=== PATIENT | female | born 1960 | race Caucasian/White ===

== ENCOUNTER → 2018-04-03 09:28 | Outpatient (CLI) | payer MEDICARE, MEDICAID, SELFPAY ==
[2018-04-03 12:26] LABS: Lithium 0.74 mmol/L (0.60-1.20)
[2018-04-03 13:29] LABS: ALT 23 U/L (12-78); AST 15 U/L (15-37); Albumin 3.8 g/dL (3.4-5.0); Alkaline Phosphatase 88 U/L (46-116); BUN 14 mg/dL (7-18); Bilirubin, Total 0.2 mg/dL (0.2-1.0); CREATININE 1.11 mg/dL (0.55-1.02); Calcium 9.2 mg/dL (8.5-10.1); Chloride 107 mmol/L (98-107); Estimated GFR 50.66 (mL/min/1.73m2); Glucose 127 mg/dL (70-100); Potassium 4.2 mmol/L (3.5-5.1); Sodium 140 mmol/L (136-145); TSH (W/Ref FT4) 1.74 uIU/mL (0.358-3.74); Total Protein 7.1 g/dL (6.4-8.2); Vitamin B12 845 pg/mL (193-986)
== END ==
PROVIDERS: Visit Provider Nurse Practitioner Psychiatric/Mental Health
DX: F31.31 Bipolar disorder, current episode depressed, mild (principal); Z51.81 Encounter for therapeutic drug level monitoring; Z79.899 Other long term (current) drug therapy
CPT/HCPCS: 36415; 80053; 80178; 82607; 84443

== ENCOUNTER 2018-04-13 10:48 | Outpatient (CLI) | payer MEDICARE, MEDICAID, SELFPAY | END 2018-04-13 11:08 | PROVIDERS: Visit Provider Nurse Practitioner Psychiatric/Mental Health | DX: F31.31 Bipolar disorder, current episode depressed, mild (principal); Z13.6 Encounter for screening for cardiovascular disorders | CPT/HCPCS: 93005; 93010 ==

== ENCOUNTER 2018-05-17 00:18 | Outpatient (CLI) | payer MEDICARE, MEDICAID, SELFPAY ==
--- NOTE | 2018-05-17 09:30 | DI.MAMMO_ITS ---
SYMPTOM/DIAGNOSIS: F/U ABNL MAMMO, 6 MO. F/U, R92.8 MAMMOGRAMS: Mammograms were interpreted according to the usual protocol including computer analysis with CAD system, tomosynthesis and C view imaging. Comparison is made with prior examinations. Breast density, B. No suspicious masses or microcalcifications are seen. The area of breast asymmetry in the medial left breast appears stable. There has been no significant change compared to the prior examinations. The skin and axilla are unremarkable. IMPRESSION: No evidence for malignancy. Yearly mammography should resume in 6 months with screening mammograms. Category 2. MQSA ASSESSMENT OF FINDINGS: Negative with benign findings. Category 2. Patient will receive a letter notifying them of these results. BI-RADS category B. There are scattered areas of fibroglandular density.
== END 2018-05-17 00:38 ==
DX: R92.8 Other abnormal and inconclusive findings on diagnostic imaging of breast (principal)
CPT/HCPCS: 77062; 77066; G0279

== ENCOUNTER 2018-09-06 09:58 | Outpatient (CLI) | payer MEDICARE, MEDICAID, SELFPAY ==
[2018-09-06 11:55] LABS: ALT 25 U/L (12-78); AST 17 U/L (15-37); Albumin 3.9 g/dL (3.4-5.0); Alkaline Phosphatase 87 U/L (46-116); Anion Gap 9.6 mmol/L (3-11); BUN 16 mg/dL (7-18); Bilirubin, Total 0.3 mg/dL (0.2-1.0); CO2 27.4 mmol/L (21.0-32.0); CREATININE 0.89 mg/dL (0.55-1.02); Calcium 9.8 mg/dL (8.5-10.1); Chloride 104 mmol/L (98-107); Glucose 100 mg/dL (70-100); Potassium 4.2 mmol/L (3.5-5.1); Sodium 141 mmol/L (136-145); TSH 0.72 uIU/mL (0.358-3.74); Total Protein 7.5 g/dL (6.4-8.2)
[2018-09-06 19:44] LABS: Lithium 0.73 mmol/L (0.60-1.20)
== END 2018-09-06 10:18 ==
PROVIDERS: Visit Provider Nurse Practitioner Psychiatric/Mental Health
DX: F31.31 Bipolar disorder, current episode depressed, mild (principal); Z51.81 Encounter for therapeutic drug level monitoring; Z79.899 Other long term (current) drug therapy
CPT/HCPCS: 36415; 80053; 80178; 84443

== ENCOUNTER 2018-10-20 01:55 | Outpatient (CLI) | payer MEDICARE, MEDICAID, SELFPAY ==
--- NOTE | 2018-10-20 12:43 | DI.RAD_ITS ---
SYMPTOMS/DIAGNOSIS: TOP OF RT FOOT PAIN BOTH WEIGHT BEARING AND NOT, ? FX, M79.685 RIGHT FOOT: There are no prior comparison exams. A fixation plate is seen across the dorsal aspect of the first MTP joint. The fixation plate is fractured over the first metatarsal level. No bony fracture is identified. IMPRESSION: Fracture of the fixation plate along the dorsum of the first MTP joint. No evidence of a bony fracture.
== END 2018-10-20 02:15 ==
DX: M79.671 Pain in right foot (principal); T84.213A Breakdown (mechanical) of internal fixation device of bones of foot and toes, initial encounter
CPT/HCPCS: 73630

== ENCOUNTER → 2018-10-25 08:01 | Outpatient (BNVA) | payer MEDICARE, MEDICAID, SELFPAY | PROVIDERS: Referring Provider Nurse Practitioner Psychiatric/Mental Health; Visit Provider Psychiatry & Neurology Neurology | DX: R09.89 Other specified symptoms and signs involving the circulatory and respiratory systems (principal) | CPT/HCPCS: 99205; 99215 ==

== ENCOUNTER → 2018-11-09 09:57 | Outpatient (BNVA) | payer MEDICARE, MEDICAID, SELFPAY | PROVIDERS: Visit Provider Orthopaedic Surgery | DX: M79.671 Pain in right foot (principal); Z98.890 Other specified postprocedural states; T84.293A Other mechanical complication of internal fixation device of bones of foot and toes, initial encounter | CPT/HCPCS: 99202; 99213 ==

== ENCOUNTER 2018-12-05 01:39 | Outpatient (CLI) | payer MEDICARE, MEDICAID, SELFPAY ==
[2018-12-05 09:47] LABS: Abs Immature Grans 0.02 k/cumm (0.0-0.09); Absolute Basophil Count 0.03 k/cumm (0.0-0.2); Absolute Eosinophil Count 0.23 k/cumm (0.0-0.7); Absolute Lymphocyte Count 3.02 k/cumm (1.2-3.4); Absolute Monocyte Count 0.54 k/cumm (0.11-0.7); Absolute Neutrophil Count 4.56 k/cumm (1.2-6.7); Basophils % 0.4; Eosinophils % 2.7; HCT 40.7 % (36.0-46.0); HGB 13.3 g/dL (12.0-15.5); Immature Grans % 0.2; Mean Corp. HGB Concentration 32.7 g/dL (32.0-36.0); Mean Corpuscular Hemoglobin 31.1 pg (27.0-33.0); Mean Corpuscular Volume 95.1 fL (80-95); Mean Platelet Volume 9.2 fL (8.0-11.0); Monocytes % 6.4; Neutrophils % 54.3; Platelet Count 305 x1000/uL (130-400); RBC 4.28 m/cumm (4.00-5.20); RBC Distribution Width 12.9 % (11.7-14.6)
[2018-12-05 10:17] LABS: Lithium 0.78 mmol/L (0.60-1.20)
[2018-12-05 10:45] LABS: ALT 36 U/L (12-78); AST 20 U/L (15-37); Albumin 3.9 g/dL (3.4-5.0); Alkaline Phosphatase 100 U/L (46-116); Anion Gap 9.1 mmol/L (3-11); BUN 13 mg/dL (7-18); Bilirubin, Total 0.2 mg/dL (0.2-1.0); CO2 28.9 mmol/L (21.0-32.0); CREATININE 1.04 mg/dL (0.55-1.02); Calcium 10.5 mg/dL (8.5-10.1); Chloride 102 mmol/L (98-107); Estimated GFR 54.43 (mL/min/1.73m2); Glucose 108 mg/dL (70-100); Potassium 4.2 mmol/L (3.5-5.1); Sodium 140 mmol/L (136-145); TSH (W/Ref FT4) 1.35 uIU/mL (0.358-3.74); Total Protein 7.3 g/dL (6.4-8.2); Vitamin B12 679 pg/mL (193-986)
== END 2018-12-05 01:59 ==
PROVIDERS: Visit Provider Nurse Practitioner Psychiatric/Mental Health
DX: F31.31 Bipolar disorder, current episode depressed, mild (principal); Z51.81 Encounter for therapeutic drug level monitoring; Z79.899 Other long term (current) drug therapy
CPT/HCPCS: 36415; 80053; 80178; 82607; 84443; 85025

== ENCOUNTER 2018-12-05 07:04 | Outpatient (CLI) | payer MEDICARE, MEDICAID, SELFPAY ==
--- NOTE | 2018-12-05 10:30 | DI.MAMMO_ITS ---
SYMPTOMS/DIAGNOSIS: 6-MO F/U RESUME ANNUAL SCREENING, Z12.31 MAMMOGRAMS: Mammograms were interpreted according to the usual protocol including computer analysis with CAD system, tomosynthesis and C view imaging. Comparison is with the prior examinations. There are scattered nodular densities in both breasts, which appear stable. There is an area of breast asymmetry in the upper right breast seen on the mediolateral oblique view. This may represent overlying fibroglandular tissue, but a spot compression view is requested. Ultrasound may be indicated at that time. IMPRESSION: Additional views of the right breast as described above. Category 0. Breast density B. MQSA ASSESSMENT OF FINDINGS: Incomplete: Needs additional imaging evaluation. Category 0. Patient will receive a letter notifying them of these results. BI-RADS category B. There are scattered areas of fibroglandular density.
== END 2018-12-05 07:24 ==
DX: Z12.31 Encounter for screening mammogram for malignant neoplasm of breast (principal); R92.8 Other abnormal and inconclusive findings on diagnostic imaging of breast
CPT/HCPCS: 77063; 77067

== ENCOUNTER 2018-12-13 00:42 | Outpatient (CLI) | payer MEDICARE, MEDICAID, SELFPAY ==
--- NOTE | 2018-12-13 14:53 | DI.COMBO_ITS ---
SYMPTOMS/DIAGNOSIS: F/U ABNORMAL MAMMO, RIGHT BREAST ASYMMETRY ADDITIONAL VIEWS OF THE RIGHT BREAST AND RIGHT BREAST ULTRASOUND: Additional images are interpreted according to the usual protocol including tomosynthesis and 2D imaging. Additional views of the right breast fail to show a persistent discrete mass. A right breast ultrasound was performed. The upper outer and upper inner quadrants were evaluated sonographically. No cystic or solid masses are present sonographically. IMPRESSION: No evidence for malignancy. A six-month follow-up right mammogram is requested for reevaluation. Category 3, breast density B. The findings were discussed with the patient on the date of the examination. MQSA ASSESSMENT OF FINDINGS: Probably benign. Six month follow-up recommended. Category 3. Patient will receive a letter notifying them of these results. BI-RADS category B. There are scattered areas of fibroglandular density.
== END 2018-12-13 01:02 ==
DX: Z12.31 Encounter for screening mammogram for malignant neoplasm of breast (principal); R92.8 Other abnormal and inconclusive findings on diagnostic imaging of breast; N64.59 Other signs and symptoms in breast
CPT/HCPCS: 76642; 77063; 77067

== ENCOUNTER 2018-12-27 02:30 | Outpatient (CLI) | payer MEDICARE, MEDICAID, SELFPAY ==
[2018-12-27 11:28] LABS: CREATININE 1.06 mg/dL (0.55-1.02); Estimated GFR 53.24 (mL/min/1.73m2); Glucose 94 mg/dL (70-100)
[2018-12-27 12:28] LABS: Lithium 1.16 mmol/L (0.60-1.20)
== END 2018-12-27 02:50 ==
PROVIDERS: Visit Provider Nurse Practitioner Family
DX: F31.31 Bipolar disorder, current episode depressed, mild (principal); Z51.81 Encounter for therapeutic drug level monitoring; Z79.899 Other long term (current) drug therapy
CPT/HCPCS: 36415; 82947; 80178; 82565

== ENCOUNTER 2019-02-13 01:56 | Outpatient (CLI) | payer MEDICARE, MEDICAID, SELFPAY ==
[2019-02-13 12:09] LABS: ALT 29 U/L (12-78); AST 15 U/L (15-37); Albumin 3.9 g/dL (3.4-5.0); Alkaline Phosphatase 102 U/L (46-116); BUN 14 mg/dL (7-18); Bilirubin, Total 0.3 mg/dL (0.2-1.0); CREATININE 0.96 mg/dL (0.55-1.02); Calcium 9.8 mg/dL (8.5-10.1); Chloride 105 mmol/L (98-107); Estimated GFR 59.69 (mL/min/1.73m2); Glucose 107 mg/dL (70-100); Potassium 4.1 mmol/L (3.5-5.1); Sodium 142 mmol/L (136-145); TSH (W/Ref FT4) 0.87 uIU/mL (0.358-3.74); Total Protein 7.2 g/dL (6.4-8.2); Vitamin B12 546 pg/mL (193-986)
== END 2019-02-13 02:16 ==
DX: E03.9 Hypothyroidism, unspecified (principal); F31.9 Bipolar disorder, unspecified; G25.2 Other specified forms of tremor; M41.20 Other idiopathic scoliosis, site unspecified; Z87.898 Personal history of other specified conditions; G25.81 Restless legs syndrome; M54.30 Sciatica, unspecified side
CPT/HCPCS: 36415; 80053; 82607; 84443

== ENCOUNTER → 2019-02-19 13:11 | Outpatient (BNVA) | payer MEDICARE, MEDICAID, SELFPAY | PROVIDERS: Visit Provider Surgery | DX: L98.8 Other specified disorders of the skin and subcutaneous tissue (principal) | CPT/HCPCS: 11400; 99201 ==

== ENCOUNTER 2019-02-21 01:44 | Outpatient (CLI) | payer MEDICARE, MEDICAID, SELFPAY | END 2019-02-21 02:04 | PROVIDERS: Visit Provider Nurse Practitioner Family | DX: F31.31 Bipolar disorder, current episode depressed, mild (principal); Z79.899 Other long term (current) drug therapy; Z51.81 Encounter for therapeutic drug level monitoring | CPT/HCPCS: 36415; 80178 ==

== ENCOUNTER → 2019-03-09 08:36 | Outpatient (BNVA) | payer MEDICARE, MEDICAID, SELFPAY | PROVIDERS: Visit Provider Physical Therapy Assistant | DX: Z48.02 Encounter for removal of sutures (principal); Z48.817 Encounter for surgical aftercare following surgery on the skin and subcutaneous tissue ==

== ENCOUNTER 2019-06-15 01:47 | Outpatient (CLI) | payer MEDICARE, MEDICAID, SELFPAY ==
[2019-06-15 12:05] LABS: ALT 26 U/L (14-59); AST 15 U/L (15-37); Albumin 3.9 g/dL (3.4-5.0); Alkaline Phosphatase 94 U/L (46-116); Anion Gap 7.5 mmol/L (3-11); BUN 15 mg/dL (7-18); Bilirubin, Total 0.3 mg/dL (0.2-1.0); CO2 29.5 mmol/L (21.0-32.0); CREATININE 1.13 mg/dL (0.55-1.02); Chloride 105 mmol/L (98-107); Estimated GFR 49.28 (mL/min/1.73m2); Glucose 121 mg/dL (70-100); Potassium 3.9 mmol/L (3.5-5.1); Sodium 142 mmol/L (136-145); TSH 0.81 uIU/mL (0.36-3.74); Total Protein 7.2 g/dL (6.4-8.2)
[2019-06-15 12:06] LABS: Lithium 0.85 mmol/L (0.60-1.20)
== END 2019-06-15 02:07 ==
PROVIDERS: Visit Provider Nurse Practitioner Family
DX: F31.31 Bipolar disorder, current episode depressed, mild (principal); Z79.899 Other long term (current) drug therapy; Z51.81 Encounter for therapeutic drug level monitoring; Z12.31 Encounter for screening mammogram for malignant neoplasm of breast; R92.8 Other abnormal and inconclusive findings on diagnostic imaging of breast; N60.81 Other benign mammary dysplasias of right breast
CPT/HCPCS: 36415; 77061; 77065; 80053; 80178; 84443; G0279

== ENCOUNTER 2019-06-15 03:11 | Outpatient (CLI) | payer MEDICARE, MEDICAID, SELFPAY ==
--- NOTE | 2019-06-15 13:57 | DI.MAMMO_ITS ---
EXAM: MG MAMMO DIAGNOSTIC UNI CLINICAL HISTORY: 6-MO F/U ABNORMAL MAMMO, ABNORMALITY OF RT BREAST TECHNIQUE: Bilateral full field digital CC and MLO mammographic images were obtained with 3D tomosyn thesis and utilizing computer aided detection (CAD). COMPARISON: SCREENING [facility] MAMMO W/CAD DIGI from 05/20/2010 SCREENING [facility] MAMMO W/CAD DIGI from 05/21/2011 SCREENING [facility] MAMMO W/CAD DIGI from 05/22/2012 DIAGNOSTIC LEFT MAMMO DIGITAL from 05/26/2012 MG mammo diagnostic BI from 05/17/2018 MG mammo screening from 12/05/2018 FINDINGS: Breast Density - Category B - Scattered areas of fibroglandular density Six-month follow-up for questioned asymmetry in the superior right breast. There is a stable area of nodularity in the superior right breast when compared with previous exams. No suspicious masses or suspicious microcalcifications are seen. IMPRESSION: BI-RADS Cat 2 - Benign Findings. Yearly screening mammography is recommended. Breast Density - Category B - Scattered areas of fibroglandular density
== END 2019-06-15 03:31 ==
DX: Z12.31 Encounter for screening mammogram for malignant neoplasm of breast (principal); R92.8 Other abnormal and inconclusive findings on diagnostic imaging of breast; N60.81 Other benign mammary dysplasias of right breast
CPT/HCPCS: 77061; 77065; G0279

== ENCOUNTER 2019-08-21 02:51 | Outpatient (CLI) | payer MEDICARE, MEDICAID, SELFPAY ==
[2019-08-21 12:56] LABS: Lithium 0.76 mmol/L (0.60-1.20)
[2019-08-21 13:13] LABS: ALT 25 U/L (14-59); AST 16 U/L (15-37); Albumin 4.1 g/dL (3.4-5.0); Alkaline Phosphatase 93 U/L (46-116); Anion Gap 7.7 mmol/L (3-11); BUN 13 mg/dL (7-18); Bilirubin, Total 0.4 mg/dL (0.2-1.0); CO2 30.3 mmol/L (21.0-32.0); Calcium 10.5 mg/dL (8.5-10.1); Chloride 102 mmol/L (98-107); Estimated GFR 56.75 (mL/min/1.73m2); Glucose 94 mg/dL (74-106); Potassium 4.3 mmol/L (3.5-5.1); Sodium 140 mmol/L (136-145); TSH 0.57 uIU/mL (0.36-3.74); Total Protein 7.4 g/dL (6.4-8.2)
== END 2019-08-21 03:11 ==
PROVIDERS: Visit Provider Nurse Practitioner Family
DX: F31.31 Bipolar disorder, current episode depressed, mild (principal); Z51.81 Encounter for therapeutic drug level monitoring; Z79.899 Other long term (current) drug therapy
CPT/HCPCS: 36415; 80053; 80178; 84443

== ENCOUNTER 2020-02-06 04:19 | Outpatient (CLI) | payer MEDICARE, MEDICAID, SELFPAY ==
[2020-02-06 10:18] LABS: Lithium 0.85 mmol/L (0.60-1.20)
[2020-02-06 10:32] LABS: ALT 22 U/L (14-59); AST 16 U/L (15-37); Albumin 3.8 g/dL (3.4-5.0); Alkaline Phosphatase 90 U/L (46-116); Anion Gap 11.2 mmol/L (3-11); BUN 14 mg/dL (7-18); Bilirubin, Total 0.2 mg/dL (0.2-1.0); CO2 23.8 mmol/L (21.0-32.0); CREATININE 1.15 mg/dL (0.55-1.02); Calcium 9.3 mg/dL (8.5-10.1); Chloride 106 mmol/L (98-107); Glucose 103 mg/dL (74-106); Potassium 4.5 mmol/L (3.5-5.1); Sodium 141 mmol/L (136-145); TSH 0.71 uIU/mL (0.36-3.74); Total Protein 7.1 g/dL (6.4-8.2)
== END 2020-02-06 04:39 ==
PROVIDERS: Visit Provider Nurse Practitioner Family
DX: Z79.899 Other long term (current) drug therapy; Z51.81 Encounter for therapeutic drug level monitoring; F31.31 Bipolar disorder, current episode depressed, mild
CPT/HCPCS: 36415; 80053; 80178; 84443

== ENCOUNTER 2020-03-17 02:46 | Outpatient (CLI) | payer MEDICARE, MEDICAID, SELFPAY ==
[2020-03-17 11:24] LABS: Abs Immature Grans 0.05 10^3/uL (0.0-0.06); Absolute Basophil Count 0.04 10^3/uL (0.0-0.2); Absolute Eosinophil Count 0.23 10^3/uL (0.0-0.7); Absolute Lymphocyte Count 3.29 10^3/uL (1.2-3.4); Absolute Monocyte Count 0.59 10^3/uL (0.1-0.8); Absolute Neutrophil Count 3.71 10^3/uL (1.2-6.7); Basophils % 0.5; Eosinophils % 2.9; HCT 38.2 % (36.0-46.0); HGB 12.3 g/dL (11.2-15.7); Immature Grans % 0.6; Lymphocytes % 41.6; MCH 31.5 pg (27.0-33.0); MCHC 32.2 % (32.0-36.0); MCV 97.9 fL (80-95); MPV 9.5 fL (8.0-11.0); Monocytes % 7.5; Neutrophils % 46.9; Nucleated RBC 0 %; Platelet Count 234 10^3/uL (130-400); RDW 12.4 % (11.7-14.6); RDW-SD 44.3 fL; WBC 7.91 10^3/uL (4.4-10.8)
[2020-03-17 11:45] LABS: ALT 17 U/L (14-59); AST 12 U/L (15-37); Albumin 3.6 g/dL (3.4-5.0); Alkaline Phosphatase 70 U/L (46-116); Anion Gap 11.5 mmol/L (3-11); BUN 14 mg/dL (7-18); Bilirubin, Total 0.2 mg/dL (0.2-1.0); CO2 24.5 mmol/L (21.0-32.0); CREATININE 0.95 mg/dL (0.55-1.02); Calcium 9.4 mg/dL (8.5-10.1); Chloride 106 mmol/L (98-107); Glucose 97 mg/dL (74-106); Potassium 4.4 mmol/L (3.5-5.1); Sodium 142 mmol/L (136-145)
== END 2020-03-17 03:06 ==
PROVIDERS: Visit Provider Nurse Practitioner Family
DX: F31.31 Bipolar disorder, current episode depressed, mild (principal); Z79.899 Other long term (current) drug therapy; Z51.81 Encounter for therapeutic drug level monitoring
CPT/HCPCS: 36415; 80053; 80164; 85025

== ENCOUNTER 2020-05-15 00:28 | Outpatient (CLI) | payer MEDICARE, MEDICAID, SELFPAY ==
--- NOTE | 2020-05-15 13:17 | DI.MAMMO_ITS ---
EXAM: MAMMO SCREENING CLINICAL HISTORY: screening,Z12.39 TECHNIQUE: Mammograms were interpreted according to the usual protocol including computer analysis w [employer] system, tomosynthesis and C-view imaging. COMPARISON: FINDINGS: The breasts are of moderate density with fairly symmetrical distribution of fibroglandular tissue. M ultiple areas well-circumscribed nodularity are seen in both breasts. Comparison with multiple previ ous examinations including November 2018 shows no gross interval change in appearance comparison with th e prior studies and no new intramammary mass is seen. No clumped microcalcification seen. IMPRESSION: No specific evidence of malignancy at this time. Follow-up mammogram requested in 12 months to re-ev aluate multiple apparently stable bilateral breast nodules. BI-RADS Category 2 - Benign Findings Breast Density - Category B - Scattered areas of fibroglandular density
== END 2020-05-15 00:48 ==
DX: Z12.31 Encounter for screening mammogram for malignant neoplasm of breast (principal); N63.20 Unspecified lump in the left breast, unspecified quadrant; N63.10 Unspecified lump in the right breast, unspecified quadrant
CPT/HCPCS: 77063; 77067

== ENCOUNTER 2020-06-30 04:27 | Outpatient (CLI) | payer MEDICARE, MEDICAID, SELFPAY ==
[2020-06-30 09:42] LABS: Abs Immature Grans 0.06 10^3/uL (0.0-0.06); Absolute Basophil Count 0.04 10^3/uL (0.0-0.2); Absolute Eosinophil Count 0.34 10^3/uL (0.0-0.7); Absolute Lymphocyte Count 3.43 10^3/uL (1.2-3.4); Absolute Neutrophil Count 2.79 10^3/uL (1.2-6.7); Basophils % 0.6; Eosinophils % 4.7; HCT 38.3 % (36.0-46.0); HGB 12.8 g/dL (11.2-15.7); Immature Grans % 0.8; Lymphocytes % 47.9; MCH 31.8 pg (27.0-33.0); MCHC 33.4 % (32.0-36.0); MPV 9.8 fL (8.0-11.0); Nucleated RBC 0 %; Platelet Count 222 10^3/uL (130-400); RBC 4.03 10^6/uL (3.93-5.22); RDW 12.2 % (11.7-14.6); RDW-SD 42.5 fL; WBC 7.16 10^3/uL (4.4-10.8)
[2020-06-30 10:51] LABS: ALT 26 U/L (14-59); AST 14 U/L (15-37); Albumin 3.6 g/dL (3.4-5.0); Alkaline Phosphatase 57 U/L (46-116); Anion Gap 10.9 mmol/L (3-11); BUN 18 mg/dL (7-18); Bilirubin, Total 0.3 mg/dL (0.2-1.0); CO2 27.1 mmol/L (21.0-32.0); CREATININE 0.94 mg/dL (0.55-1.02); Calcium 8.9 mg/dL (8.5-10.1); Calculated LDL 97 mg/dL (<100); Chloride 108 mmol/L (98-107); Cholesterol 186 mg/dL (<200); Glucose 92 mg/dL (74-106); HDL Cholesterol 69 mg/dL (40-60); Potassium 4.6 mmol/L (3.5-5.1); Sodium 146 mmol/L (136-145); TSH (W/Ref FT4) 0.63 uIU/mL (0.36-3.74); Total Protein 6.8 g/dL (6.4-8.2); Triglyceride 103 mg/dL (<150)
== END 2020-06-30 04:47 ==
PROVIDERS: Visit Provider Nurse Practitioner Family
DX: E03.9 Hypothyroidism, unspecified (principal); I10 Essential (primary) hypertension; F31.9 Bipolar disorder, unspecified; G47.00 Insomnia, unspecified; G25.81 Restless legs syndrome; Z51.81 Encounter for therapeutic drug level monitoring
CPT/HCPCS: 36415; 80053; 80061; 80164; 84443; 85025

== ENCOUNTER 2021-01-01 02:40 | Outpatient (CLI) | payer MEDICARE, MEDICAID, SELFPAY ==
[2021-01-01 09:18] LABS: Abs Immature Grans 0.02 10^3/uL (0.0-0.06); Absolute Basophil Count 0.02 10^3/uL (0.0-0.2); Absolute Lymphocyte Count 2.88 10^3/uL (1.2-3.4); Absolute Monocyte Count 0.52 10^3/uL (0.1-0.8); Absolute Neutrophil Count 3.35 10^3/uL (1.2-6.7); Basophils % 0.3; Eosinophils % 1.5; HCT 39.8 % (36.0-46.0); HGB 13.4 g/dL (11.2-15.7); Immature Grans % 0.3; Lymphocytes % 41.8; MCH 32.4 pg (27.0-33.0); MCHC 33.7 % (32.0-36.0); MCV 96.4 fL (80-95); MPV 9.7 fL (8.0-11.0); Monocytes % 7.5; Neutrophils % 48.6; Nucleated RBC 0 %; Platelet Count 246 10^3/uL (130-400); RBC 4.13 10^6/uL (3.93-5.22); RDW 12.3 % (11.7-14.6); RDW-SD 43.7 fL; WBC 6.89 10^3/uL (4.4-10.8)
[2021-01-01 10:01] LABS: Hemoglobin A1C 5.5 % (<5.7)
[2021-01-01 10:49] LABS: Vitamin D 25 Total 47.1 ng/mL (30-100)
[2021-01-01 10:55] LABS: ALT 18 U/L (14-59); AST 11 U/L (15-37); Albumin 3.7 g/dL (3.4-5.0); Alkaline Phosphatase 65 U/L (46-116); Anion Gap 7.6 mmol/L (3-11); BUN 16 mg/dL (7-18); Bilirubin, Total 0.3 mg/dL (0.2-1.0); CO2 28.4 mmol/L (21.0-32.0); Calcium 9.3 mg/dL (8.5-10.1); Calculated LDL 95 mg/dL (<100); Chloride 106 mmol/L (98-107); Cholesterol 180 mg/dL (<200); Estimated GFR 56.56 (mL/min/1.73m2); Ferritin 257 ng/mL (8-252); Folate > 20.0 ng/mL (8.6-20.0); Glucose 99 mg/dL (74-106); HDL Cholesterol 63 mg/dL (40-60); Magnesium 2.2 mg/dL (1.8-2.4); Sodium 142 mmol/L (136-145); TSH 0.31 uIU/mL (0.36-3.74); Triglyceride 110 mg/dL (<150); Vitamin B12 672 pg/mL (193-986)
[2021-01-01 11:11] LABS: C-Reactive Protein 0.23 mg/dL (0.0-0.3); FREE T4 0.95 ng/dL (0.76-1.46)
[2021-01-01 16:57] LABS: T3,Free 3.3 pg/mL (2.8-5.3)
== END 2021-01-01 02:41 | disposition home or self-care (01) ==
PROVIDERS: Visit Provider Psychiatry & Neurology Psychiatry
DX: F31.31 Bipolar disorder, current episode depressed, mild (principal); Z79.899 Other long term (current) drug therapy
CPT/HCPCS: 36415; 80053; 80061; 82306; 82607; 82728; 82746; 83036; 83735; 84439; 84443; 84481; 85025; 86140

== ENCOUNTER 2021-05-18 00:36 | Outpatient (CLI) | payer MEDICARE, MEDICAID, SELFPAY ==
--- NOTE | 2021-05-18 07:45 | DI.MAMMO_ITS ---
Exam(s) MAMMO SCREENING EXAM: MAMMO SCREENING CLINICAL HISTORY: screening,z12.39 TECHNIQUE: Mammograms were interpreted according to the usual protocol including computer analysis w [employer] CAD system, tomosynthesis and C-view imaging. COMPARISON: FINDINGS: The breasts are of moderate density with fairly symmetrical distribution of fibroglandular tissue. T here is asymmetric density in medial aspect of left breast on CC view, unchanged from prior examinati ons. There are areas of nodularity projected in the central superior portion of the right breast which may be slightly larger in comparison with prior examination of May 2020. Spot compression views and breast ultrasound requested for further evaluation. No other significant change seen. IMPRESSION: Question interval increase in size of small areas of nodularity in central superior portion of the ri ght breast. Spot compression views and breast ultrasound requested on the right. BI-RADS Category 0 - Assessment Incomplete: Need additional imaging evaluation Breast Density - Category B - Scattered areas of fibroglandular density
== END 2021-05-18 00:56 ==
DX: Z12.31 Encounter for screening mammogram for malignant neoplasm of breast (principal); R92.8 Other abnormal and inconclusive findings on diagnostic imaging of breast
CPT/HCPCS: 77063; 77067

== ENCOUNTER 2021-05-27 01:18 | Outpatient (CLI) | payer MEDICARE, MEDICAID, SELFPAY ==
--- NOTE | 2021-05-27 | DI.MAMMO_ITS ---
Exam(s) MG MAMMO SCREEN CALL BACK UNI US BREAST RT LIMITED EXAM: MG MAMMO SCREEN CALL BACK UNI and U/S breast RT limited CLINICAL HISTORY: F/U MAMMO, ? INCREASE IN SIZE OF NODULARITY CENTRAL SUPERIOR PORTION. TECHNIQUE: Craniocaudal and mediolateral oblique Full Field Digital Mammography views of the right b reast with Computer Aided Diagnosis followed by Tomosynthesis and right breast ultrasound. COMPARISON: Priors available for comparison. FINDINGS: Mammography/Tomosynthesis: Masses/Architectural Distortion: There again seen 2 nodular areas in the upper outer quadrant of the right breast. These have a similar appearance to prior examinations and can be seen on images dated 2015 and 2016. Microcalcifictions: No suspicious pleomorphic-type are seen. Skin Thickening/Nipple Retraction: None. Right breast US: The upper outer and lower outer quadrants of the right breast were evaluated sonogra phically. Echotexture: Normal appearance of the glandular tissue. Shadowing: No suspicious foci. Cyst: There is a 0.8 x 0.4 x 0.8 cm cyst at the 11 o'clock position of the right breast 5 cm from the nipple. This would appear to correspond to 1 of the lesions. No suspicious cystic lesions are seen . Solid lesions: None seen. Ductal dilation: None. IMPRESSION: 1. No evidence of malignancy is noted. 2. A six-month follow-up right mammogram is recommended for re-evaluation. 3. The findings were discussed with the patient on the date of the examination. BI-RADS Category 3 - 6 month - Probably Benign Finding: Recommend follow-up imaging in 6 months Breast Density - Category B - Scattered areas of fibroglandular density Breast density category C or D implies that the patient has dense breast tissue. Dense breast tissue is very common and is not abnormal but dense breast tissue can make it harder to find cancer on a ma mmogram. Also, dense breast tissue may increase their breast cancer risk. This information about the result of the mammogram report was provided to the patient to raise their awareness. Use this report when you speak with the patient about their risks for breast cancer, which includes their family hist ory. At that time, you may recommend for more screening tests (Ultrasound or MRI) as they might be us eful based on their risk. A negative radiographic report should not delay biopsy if a dominant or clinically suspicious mass is present. Up to ten percent of cancers are not identified on mammography. A negative report may reinforce clinical impression. Adenosis and dense breasts may obscure an underlying neoplasm. False positive reports average 6 to 10%. Patient will receive a letter notifying them of these results.
== END 2021-05-27 01:38 ==
DX: Z12.31 Encounter for screening mammogram for malignant neoplasm of breast (principal); R92.8 Other abnormal and inconclusive findings on diagnostic imaging of breast; N60.01 Solitary cyst of right breast
CPT/HCPCS: 76642; 77063; 77067

== ENCOUNTER 2021-10-07 18:33 | Outpatient (REF) | payer MEDICARE, MEDICAID, SELFPAY | END 2021-10-07 18:34 | disposition home or self-care (01) | LOC: LBN 18:33 | PROVIDERS: Visit Provider Obstetrics & Gynecology Gynecology | DX: R10.9 Unspecified abdominal pain (principal) | CPT/HCPCS: 87086 ==

== ENCOUNTER 2021-11-25 01:18 | Outpatient (CLI) | payer MEDICARE, MEDICAID, SELFPAY ==
--- NOTE | 2021-11-25 14:33 | DI.MAMMO_ITS ---
Exam(s) MG MAMMO DIAGNOSTIC UNI EXAM: MAMMO DIAGNOSTIC UNI CLINICAL HISTORY: 6 mo f/u,f/u abnl mammo,r92.8 TECHNIQUE: Mammograms were interpreted according to the usual protocol including computer analysis w ith CAD system, tomosynthesis and C-view imaging. COMPARISON: FINDINGS: Right breast mammogram was obtained to follow areas of nodularity seen on prior mammogram of May 2021. On today's examination, the previously described masses of the central portion of the right br east are again seen. On today's examination, these appear grossly of normal size in comparison with prior examination. There is a question of micro lobulation involving the more anterior of the 2 mass es. Additionally, there is new microcalcification associated with the more anterior of the 2 masses, on the MLO view this appears to be extra lesional. Additional evaluation with spot compression view s and ultrasound of this area is recommended to complete evaluation and exclude new evidence of malig emmanuel. IMPRESSION: Additional mammographic views of the right breast and right breast ultrasound requested as described above. BI-RADS Category 0 - Assessment Incomplete: Need additional imaging evaluation Density Breast Density - Category B - Scattered areas of fibroglandular density
== END 2021-11-25 01:38 ==
DX: R92.8 Other abnormal and inconclusive findings on diagnostic imaging of breast (principal); N63.15 Unspecified lump in the right breast, overlapping quadrants
CPT/HCPCS: 77061; 77065; G0279

== ENCOUNTER 2021-11-27 01:57 | Outpatient (CLI) | payer MEDICARE, MEDICAID, SELFPAY ==
[2021-11-27 16:46] LABS: Abs Immature Grans 0.02 10^3/uL (0.0-0.06); Absolute Basophil Count 0.04 10^3/uL (0.0-0.2); Absolute Eosinophil Count 0.25 10^3/uL (0.0-0.7); Absolute Lymphocyte Count 3.93 10^3/uL (1.2-3.4); Absolute Monocyte Count 0.65 10^3/uL (0.1-0.8); Absolute Neutrophil Count 3.95 10^3/uL (1.2-6.7); Basophils % 0.5; Eosinophils % 2.8; HCT 40.6 % (36.0-46.0); HGB 13.4 g/dL (11.2-15.7); Immature Grans % 0.2; Lymphocytes % 44.5; MCV 96.9 fL (80-95); MPV 11.3 fL (8.0-11.0); Monocytes % 7.4; Neutrophils % 44.6; Platelet Count 208 10^3/uL (130-400); RBC 4.19 10^6/uL (3.93-5.22); RDW 12.2 % (11.7-14.6); RDW-SD 43.3 fL; WBC 8.84 10^3/uL (4.4-10.8)
[2021-11-27 16:55] LABS: VALPROIC ACID 73.5 ug/mL
[2021-11-27 17:03] LABS: Hemoglobin A1C 5.7 % (<5.7)
[2021-11-27 17:51] LABS: ALT 23 U/L (14-59); AST 13 U/L (15-37); Albumin 3.8 g/dL (3.4-5.0); Alkaline Phosphatase 77 U/L (46-116); Anion Gap 5.4 mmol/L (3-11); BUN 19 mg/dL (7-18); Bilirubin, Total 0.2 mg/dL (0.2-1.0); CO2 28.6 mmol/L (21.0-32.0); CREATININE 1.2 mg/dL (0.55-1.02); Calcium 9.1 mg/dL (8.5-10.1); Calculated LDL 76 mg/dL (<100); Chloride 106 mmol/L (98-107); Cholesterol 184 mg/dL (<200); Estimated GFR 45.67 (mL/min/1.73m2); Ferritin 202 ng/mL (8-252); Glucose 109 mg/dL (74-106); HDL Cholesterol 70 mg/dL (40-60); Magnesium 2.1 mg/dL (1.8-2.4); Potassium 3.8 mmol/L (3.5-5.1); Sodium 140 mmol/L (136-145); Total Protein 7.1 g/dL (6.4-8.2); Triglyceride 193 mg/dL (<150); Vitamin B12 750 pg/mL (193-986)
[2021-11-27 17:52] LABS: Folate > 20.0 ng/mL (8.6-20.0)
[2021-11-27 18:08] LABS: C-Reactive Protein 0.15 mg/dL (0.0-0.3); FREE T4 1.04 ng/dL (0.76-1.46)
[2021-11-28 22:14] LABS: T3,Free 3.1 pg/mL (2.8-5.3)
[2021-11-30 06:00] LABS: Vitamin D 25 Total 46.1 ng/mL (30-100)
[2021-11-30 08:51] LABS: Homocysteine 9.2 umol/L (5.0-13.9)
[2021-12-01 10:57] LABS: Zinc, Serum 0.71 mcg/mL (0.66-1.10)
== END 2021-11-27 01:58 | disposition home or self-care (01) ==
LOC: LBO 01:57
PROVIDERS: Psychiatry & Neurology Psychiatry
DX: F31.31 Bipolar disorder, current episode depressed, mild (principal); Z79.899 Other long term (current) drug therapy; Z51.81 Encounter for therapeutic drug level monitoring
CPT/HCPCS: 36415; 80053; 80061; 82306; 83090; 80164; 82607; 82728; 82746; 83036; 83735; 84439; 84443; 84481; 84630; 85025; 86140

== ENCOUNTER 2021-12-01 01:27 | Outpatient (CLI) | payer MEDICARE, MEDICAID, SELFPAY ==
--- NOTE | 2021-12-01 | DI.MAMMO_ITS ---
Exam(s) MG MAMMO SCREEN CALL BACK UNI US BREAST RT LIMITED EXAM: MG MAMMO SCREEN CALL BACK UNI and U/S breast RT limited CLINICAL HISTORY: F/U ABNL MAMMO,R92.8,NEW MICROCALCIFICATION. TECHNIQUE: Craniocaudal and mediolateral oblique Full Field Digital Mammography views of the right b reast with Computer Aided Diagnosis followed by Tomosynthesis and right breast ultrasound. COMPARISON: Comparison with prior examinations. FINDINGS: Mammography/Tomosynthesis: Masses/Architectural Distortion: There again seen well-circumscribed nodules in the upper outer quadr ant of the right breast. Microcalcifictions: No suspicious pleomorphic-type are seen. Skin Thickening/Nipple Retraction: None. Limited right breast US: Echotexture: Normal appearance of the glandular tissue. Shadowing: No suspicious foci. Cyst: There is a collection of cysts at the 10 o'clock position 5 cm from the nipple. These would co rrespond to the mammographic abnormalities. The largest measures 0.7 x 0.4 x 0.6 cm and appears sept ated. The smaller measures 0.5 x 0.4 x 0.6 cm and also appears to be septated. Solid lesions: None seen. Ductal dilation: None. IMPRESSION: 1. No evidence of malignancy is noted. 2. Unless there is more urgent need, follow-up screening mammography is recommended, as per [place] [employer] guidelines. 3. The findings were discussed with the patient on the date of the examination. BI-RADS Category 2 - Benign Findings Breast Density - Category B - Scattered areas of fibroglandular density Breast density Category C or D implies that the patient has dense breast tissue. Dense breast tissue can make it harder to find cancer on a mammogram. Dense breast tissue is also associated with an incr eased risk of breast cancer. This information about the result of the mammogram report was provided to the patient to raise their awareness. Use this report when you speak with the patient about their risks for breast cancer, which includes their family history. At that time, you may recommend additional screening tests (Ultrasoun d or MRI) as these tests may add significant information. A negative radiographic report should not delay biopsy if a dominant or clinically suspicious mass is present. Up to ten percent of cancers are not identified on mammography. A negative report may reinforce clinical impression. Adenosis and dense breasts may obscure an underlying neoplasm. False positive reports average 6 to 10%. Patient will receive a letter notifying them of these results.
== END 2021-12-01 01:47 ==
DX: Z12.31 Encounter for screening mammogram for malignant neoplasm of breast (principal); R92.8 Other abnormal and inconclusive findings on diagnostic imaging of breast; N60.11 Diffuse cystic mastopathy of right breast
CPT/HCPCS: 76642; 77063; 77067

== ENCOUNTER 2022-08-12 02:23 | Outpatient (CLI) | payer MEDICARE, MEDICAID, SELFPAY ==
[2022-08-12 09:38] LABS: HCT 38.9 % (36.0-46.0); HGB 13.1 g/dL (11.2-15.7); MCHC 33.7 % (32.0-36.0); MCV 95 fL (80-95); MPV 9.5 fL (8.0-11.0); Platelet Count 270 10^3/uL (130-400); RDW 11.9 % (11.7-14.6); RDW-SD 41.7 fL; WBC 7.56 10^3/uL (4.4-10.8)
[2022-08-12 09:58] LABS: Hemoglobin A1C 5.5 % (<5.7)
[2022-08-12 10:20] LABS: VALPROIC ACID 39.1 ug/mL
[2022-08-12 10:31] LABS: ALT 21 U/L (14-59); AST 16 U/L (15-37); Albumin 3.9 g/dL (3.4-5.0); Alkaline Phosphatase 69 U/L (46-116); Anion Gap 7.5 mmol/L (3-11); BUN 13 mg/dL (7-18); Bilirubin, Total 0.3 mg/dL (0.2-1.0); CO2 27.5 mmol/L (21.0-32.0); CREATININE 0.8 mg/dL (0.55-1.02); Calcium 9.3 mg/dL (8.5-10.1); Calculated LDL 79 mg/dL (<100); Chloride 106 mmol/L (98-107); Cholesterol 175 mg/dL (<200); Estimated GFR 83.26 (mL/min/1.73m2); Ferritin 208 ng/mL (8-252); Folate 16.3 ng/mL (8.6-20.0); Glucose 95 mg/dL (74-106); HDL Cholesterol 82 mg/dL (40-60); Potassium 4.2 mmol/L (3.5-5.1); Sodium 141 mmol/L (136-145); Total Protein 7.4 g/dL (6.4-8.2); Triglyceride 72 mg/dL (<150)
[2022-08-12 11:10] LABS: FREE T4 1.13 ng/dL (0.76-1.46); TSH 0.07 uIU/mL (0.36-3.74)
[2022-08-12 11:50] LABS: Vitamin B12 635 pg/mL (193-986)
[2022-08-12 19:13] LABS: T3,Free 4.2 pg/mL (2.8-5.3)
[2022-08-13 08:23] LABS: Homocysteine 10.6 umol/L (5.0-13.9)
[2022-08-13 16:14] LABS: Zinc, S 81 mcg/dL (60-106)
[2022-08-13 16:15] LABS: Copper, Serum 124 mcg/dL (77-206)
[2022-08-14 01:55] LABS: 25-Hydroxy D Total 48 ng/mL; 25-Hydroxy D2 <4.0 ng/mL; 25-Hydroxy D3 48 ng/mL
[2022-08-15 14:08] LABS: 1,25-Dihydroxyvitamin D 57 pg/mL (18-78)
== END 2022-08-12 02:24 | disposition home or self-care (01) ==
LOC: LBO 02:23
PROVIDERS: Psychiatry & Neurology Psychiatry; PCP Nurse Practitioner Family; Visit Provider Nurse Practitioner Family
DX: R73.03 Prediabetes; E03.9 Hypothyroidism, unspecified; F31.31 Bipolar disorder, current episode depressed, mild; R20.2 Paresthesia of skin; Z79.899 Other long term (current) drug therapy
CPT/HCPCS: 36415; 80048; 80053; 80061; 82306; 82525; 83090; 84630; 85027; 80164; 82607; 82652; 82728; 82746; 83036; 83735; 84439; 84443; 84481

== ENCOUNTER → 2022-09-27 10:00 | Outpatient (BNVA) | payer MEDICARE, MEDICAID, SELFPAY | PROVIDERS: PCP Nurse Practitioner Family; Referring Provider Nurse Practitioner Family; Visit Provider Psychiatry & Neurology Neurology | DX: G56.22 Lesion of ulnar nerve, left upper limb (principal) | CPT/HCPCS: 95908; 99203 ==

== ENCOUNTER 2022-12-13 01:08 | Outpatient (CLI) | payer MEDICARE, MEDICAID, SELFPAY ==
--- NOTE | 2022-12-13 08:27 | DI.MAMMO_ITS ---
Exam(s) MAMMO SCREENING EXAM: MAMMO SCREENING CLINICAL HISTORY: screening,z12.39 TECHNIQUE: Mammograms were interpreted according to the usual protocol including computer analysis w [employer] CAD system, tomosynthesis and C-view imaging. COMPARISON: 2012 through 2021 FINDINGS: The breasts are composed of scattered fibroglandular densities, Breast Density category B. No suspicious masses or suspicious microcalcifications are seen. Grossly noted areas of nodularity i n the right breast is somewhat less prominent when compared with prior exams. No skin thickening or abnormal axillary lymph nodes are seen. There has been no significant change from prior exams. IMPRESSION: BI-RADS Cat 2 - Benign Findings Negative Mammogram with benign findings. Yearly screening mammography is recommended. Breast Density - Category B, scattered fibroglandular densities. A negative radiographic report should not delay biopsy if a dominant or clinically suspicious mass is present. Up to ten percent of cancers are not identified on mammography. A negative report may reinforce clinical impression. Adenosis and dense breasts may obscure an underlying neoplasm. False positive reports average 6 to 10%. Patient will receive a letter notifying them of these results.
== END 2022-12-13 01:28 ==
LOC: DI 01:08
PROVIDERS: PCP Nurse Practitioner Family; Visit Provider Nurse Practitioner Family
DX: Z12.31 Encounter for screening mammogram for malignant neoplasm of breast (principal)
CPT/HCPCS: 77063; 77067

== ENCOUNTER 2022-12-15 02:15 | Outpatient (CLI) | payer MEDICARE, MEDICAID, SELFPAY ==
[2022-12-15 08:59] LABS: FREE T4 0.85 ng/dL (0.76-1.46); TSH 0.95 uIU/mL (0.36-3.74)
== END 2022-12-15 02:16 | disposition home or self-care (01) ==
PROVIDERS: PCP Nurse Practitioner Family; Visit Provider Nurse Practitioner Family
DX: E03.9 Hypothyroidism, unspecified (principal)
CPT/HCPCS: 36415; 84439; 84443

== ENCOUNTER 2023-01-14 01:57 | Outpatient (CLI) | payer MEDICARE, MEDICAID, SELFPAY ==
[2023-01-14 07:27] LABS: Abs Immature Grans 0.05 10^3/uL (0.0-0.06); Absolute Basophil Count 0.02 10^3/uL (0.0-0.2); Absolute Monocyte Count 0.77 10^3/uL (0.1-0.8); Absolute Neutrophil Count 6.09 10^3/uL (1.2-6.7); Basophils % 0.2; HCT 41.9 % (36.0-46.0); Immature Grans % 0.5; Lymphocytes % 28.6; MCH 31.6 pg (27.0-33.0); MCHC 33.4 % (32.0-36.0); MCV 95 fL (80-95); MPV 8.7 fL (8.0-11.0); Monocytes % 7.6; Neutrophils % 60.1; Platelet Count 265 10^3/uL (130-400); RBC 4.43 10^6/uL (3.93-5.22); RDW 12.4 % (11.7-14.6); RDW-SD 43.1 fL; WBC 10.13 10^3/uL (4.4-10.8)
[2023-01-14 07:43] LABS: VALPROIC ACID 40.7 ug/mL
== END 2023-01-14 01:58 | disposition home or self-care (01) ==
PROVIDERS: PCP Nurse Practitioner Family; Visit Provider Nurse Practitioner Family
DX: F31.31 Bipolar disorder, current episode depressed, mild; Z79.899 Other long term (current) drug therapy
CPT/HCPCS: 36415; 80164; 85025

== ENCOUNTER 2023-08-17 04:48 | Outpatient (CLI) | payer MEDICARE, MEDICAID, SELFPAY ==
[2023-08-17 09:10] LABS: Abs Immature Grans 0.01 10^3/uL (0.0-0.06); Absolute Basophil Count 0.05 10^3/uL (0.0-0.2); Absolute Eosinophil Count 0.28 10^3/uL (0.0-0.7); Absolute Lymphocyte Count 3.35 10^3/uL (1.2-3.4); Absolute Monocyte Count 0.65 10^3/uL (0.1-0.8); Absolute Neutrophil Count 3.02 10^3/uL (1.2-6.7); Basophils % 0.7; Eosinophils % 3.8; HCT 42.6 % (36.0-46.0); HGB 14.7 g/dL (11.2-15.7); Immature Grans % 0.1; Lymphocytes % 45.5; MCH 32.7 pg (27.0-33.0); MCHC 34.5 % (32.0-36.0); MCV 95 fL (80-95); MPV 8.7 fL (8.0-11.0); Monocytes % 8.8; Neutrophils % 41.1; Platelet Count 270 10^3/uL (130-400); RBC 4.49 10^6/uL (3.93-5.22); RDW 12.5 % (11.7-14.6); RDW-SD 43.9 fL; WBC 7.36 10^3/uL (4.4-10.8)
[2023-08-17 09:32] LABS: Hemoglobin A1C 5.2 % (<5.7)
[2023-08-17 09:40] LABS: ALT 27 U/L (14-59); AST 16 U/L (15-37); Albumin 3.7 g/dL (3.4-5.0); Alkaline Phosphatase 78 U/L (46-116); BUN 12 mg/dL (7-18); Bilirubin, Total 0.5 mg/dL (0.2-1.0); CREATININE 0.9 mg/dL (0.55-1.02); Calcium 9.2 mg/dL (8.5-10.1); Chloride 102 mmol/L (98-107); Estimated GFR 71.83 (mL/min/1.73m2); Glucose 101 mg/dL (74-106); Potassium 4.4 mmol/L (3.5-5.1); Sodium 139 mmol/L (136-145); TSH (W/Ref FT4) 0.72 uIU/mL (0.36-3.74); Total Protein 7.7 g/dL (6.4-8.2)
[2023-08-17 10:04] LABS: Lithium < 0.2 mmol/l (0.6-1.2)
[2023-08-17 18:57] LABS: Hepatitis C Ab w Rflx HCV PCR Negative (Negative)
== END 2023-08-17 04:49 | disposition home or self-care (01) ==
LOC: LBO 04:48
PROVIDERS: PCP Nurse Practitioner Family; Visit Provider Nurse Practitioner Psychiatric/Mental Health
DX: F31.9 Bipolar disorder, unspecified (principal); Z00.00 Encounter for general adult medical examination without abnormal findings; E03.9 Hypothyroidism, unspecified; Z79.899 Other long term (current) drug therapy
CPT/HCPCS: 36415; 80053; 86803; 80178; 83036; 84443; 85025

== ENCOUNTER → 2023-09-19 00:55 | Outpatient (CLI) | payer MEDICARE, MEDICAID, SELFPAY ==
--- NOTE | 2023-09-19 08:00 | DI.US_ITS ---
Exam(s) US BREAST RT LIMITED MG MAMMO DIAGNOSTIC BI EXAM: MG MAMMO DIAGNOSTIC BI CLINICAL HISTORY: right breast pain,rt axillary swelling,? lymphadenopathy,N64.4. COMPARISON: No exams were available for comparison TECHNIQUE: Craniocaudal and mediolateral oblique Full Field Digital Mammography views of both breast s with Computer Aided Diagnosis followed by Tomosynthesis and right breast ultrasound. FINDINGS: Mammography/Tomosynthesis: Masses/Architectural Distortion: None seen. Microcalcifications: No suspicious pleomorphic-type are seen. Skin Thickening/Nipple Retraction: None. Right breast US: Echotexture: Normal appearance of the glandular tissue. Shadowing: No suspicious foci. Cyst: None. Solid lesions: None seen. Ductal dilation: None. Axilla: Normal appearing lymph node. IMPRESSION: 1. No evidence of malignancy is noted. 2. Unless there is more urgent need, follow-up screening mammography is recommended, as per [place] [employer] guidelines. BI-RADS Category 1 - Negative Breast Density - Category B - Scattered areas of fibroglandular density Breast density category C or D implies that the patient has dense breast tissue. Dense breast tissue is very common and is not abnormal but dense breast tissue can make it harder to find cancer on a ma mmogram. Also, dense breast tissue may increase their breast cancer risk. This information about the result of the mammogram report was provided to the patient to raise their awareness. Use this report when you speak with the patient about their risks for breast cancer, which includes their family hist ory. At that time, you may recommend for more screening tests (Ultrasound or MRI) as they might be us eful based on their risk. A negative radiographic report should not delay biopsy if a dominant or clinically suspicious mass is present. Up to ten percent of cancers are not identified on mammography. A negative report may reinforce clinical impression. Adenosis and dense breasts may obscure an underlying neoplasm. False positive reports average 6 to 10%. Patient will receive a letter notifying them of these results.
== END ==
PROVIDERS: PCP Nurse Practitioner Family; Visit Provider Nurse Practitioner Family
DX: N64.4 Mastodynia (principal); M79.89 Other specified soft tissue disorders; Z12.31 Encounter for screening mammogram for malignant neoplasm of breast
CPT/HCPCS: 76642; 77062; 77066; G0279

== ENCOUNTER 2024-02-10 18:50 | Outpatient (REF) | payer MEDICARE, MEDICAID, SELFPAY ==
[2024-02-13 12:50] LABS: Lyme Ab w Rflx to Lyme Confirm Negative (Negative)
[2024-02-14 21:17] LABS: Anaplasma phagocytophilum Negative (Negative); B. miyamotoi PCR Negative (Negative); Babesia divergens/MO-1 Negative (Negative); Babesia duncani Negative (Negative); Babesia microti Negative (Negative); Ehrlichia chaffeensis Negative (Negative); Ehrlichia ewingii/canis Negative (Negative); Ehrlichia muris eauclairensis Negative (Negative)
== END 2024-02-10 18:51 | disposition home or self-care (01) ==
LOC: LBN 18:50
PROVIDERS: PCP Nurse Practitioner Family; Visit Provider Nurse Practitioner Family
DX: A69.20 Lyme disease, unspecified (principal)
CPT/HCPCS: 87798; 86618

== ENCOUNTER 2024-09-04 03:13 | Outpatient (CLI) | payer MEDICARE, MEDICAID, SELFPAY ==
[2024-09-04 12:43] LABS: ALT 22 U/L (14-59); AST 12 U/L (15-37); Albumin 3.7 g/dL (3.4-5.0); Alkaline Phosphatase 61 U/L (46-116); Anion Gap 8.6 mmol/L (3-11); BUN 13 mg/dL (7-18); Bilirubin, Total 0.33 mg/dL (0.2-1.0); CO2 27.4 mmol/L (21.0-32.0); CREATININE 0.9 mg/dL (0.55-1.02); Calcium 9.3 mg/dL (8.5-10.1); Chloride 105 mmol/L (98-107); Estimated GFR 71.39 (mL/min/1.73m2); Glucose 99 mg/dL (74-106); Potassium 4.3 mmol/L (3.5-5.1); Sodium 141 mmol/L (136-145); TSH (W/Ref FT4) 0.95 uIU/mL (0.36-3.74); Total Protein 7.3 g/dL (6.4-8.2)
[2024-09-04 12:44] LABS: VALPROIC ACID 27.4 ug/mL
[2024-09-04 18:53] LABS: HIV-1/2 Ag & Ab Screen Negative (Negative)
[2024-09-04 18:56] LABS: HBs Antibody, Quant <3.1 mIU/mL (See Note); Hep B Surface Ab Negative (See Note); Hepatitis B Core Antibody Negative (Negative); Hepatitis B Surface Antigen Negative (Negative)
== END 2024-09-04 03:14 | disposition home or self-care (01) ==
LOC: LOS 03:13
PROVIDERS: PCP Nurse Practitioner Family; Visit Provider Nurse Practitioner Family
DX: E03.9 Hypothyroidism, unspecified (principal); Z11.4 Encounter for screening for human immunodeficiency virus [HIV]; F31.77 Bipolar disorder, in partial remission, most recent episode mixed; Z11.59 Encounter for screening for other viral diseases
CPT/HCPCS: 36415; 80053; 86704; 86706; 87340; 87389; 80164; 84443

== ENCOUNTER 2024-09-24 01:04 | Outpatient (CLI) | payer MEDICARE, MEDICAID, SELFPAY ==
--- NOTE | 2024-09-24 07:45 | DI.MAMMO_ITS ---
Exam(s) MAMMO SCREENING EXAM: MAMMO SCREENING CLINICAL HISTORY: screening,Z12.39 TECHNIQUE: Bilateral full field digital CC and MLO mammographic images were obtained with 3D tomosyn thesis and utilizing computer aided detection (CAD). COMPARISON: Available for comparison. FINDINGS: Masses/Architectural Distortion: None seen. Microcalcifications: No suspicious pleomorphic-type are seen. Skin Thickening/Nipple Retraction: None. IMPRESSION: 1. No significant interval change with no specific features of malignancy noted. 2. Unless there is more urgent need, screening mammography is recommended, as per [place] [employer] guidelines. BI-RADS Category 1 - Negative Breast Density - Category B - Scattered areas of fibroglandular density Breast density category C or D implies that the patient has dense breast tissue. Dense breast tissue is very common and is not abnormal but dense breast tissue can make it harder to find cancer on a ma mmogram. Also, dense breast tissue may increase their breast cancer risk. This information about the result of the mammogram report was provided to the patient to raise their awareness. Use this report when you speak with the patient about their risks for breast cancer, which includes their family hist ory. At that time, you may recommend for more screening tests (Ultrasound or MRI) as they might be us eful based on their risk. A negative radiographic report should not delay biopsy if a dominant or clinically suspicious mass is present. Up to ten percent of cancers are not identified on mammography. A negative report may reinforce clinical impression. Adenosis and dense breasts may obscure an underlying neoplasm. False positive reports average 6 to 10%. Patient will receive a letter notifying them of these results.
== END 2024-09-24 01:24 ==
LOC: DI 01:04
PROVIDERS: PCP Nurse Practitioner Family; Visit Provider Nurse Practitioner Family
DX: Z12.31 Encounter for screening mammogram for malignant neoplasm of breast (principal); R92.323 Mammographic fibroglandular density, bilateral breasts
CPT/HCPCS: 77063; 77067

== ENCOUNTER → 2024-10-31 08:58 | Outpatient (BNVA) | payer MEDICARE, MEDICAID, SELFPAY | PROVIDERS: PCP Nurse Practitioner Family; Referring Provider Nurse Practitioner Family; Visit Provider Student in an Organized Health Care Education/Training Program | DX: Z12.11 Encounter for screening for malignant neoplasm of colon (principal); Z86.0101 Personal history of adenomatous and serrated colon polyps ==

== ENCOUNTER 2024-11-13 07:37 | Day surgery (SDC) | payer MEDICARE, MEDICAID, SELFPAY ==
[2024-11-13 07:54] VITALS: BP 135/85; PULSE 92; RESP 18; TEMP 36.1; O2SAT 98
[2024-11-13] MEDS: Lactated Ringers 1,000 ML 80 ML IV (08:11)
[2024-11-13 08:18] VITALS: BMI 24.5
--- NOTE | 2024-11-13 08:18 | W.ANESPRE ---
General Info Date of Service Date Performed: 11/13/24 Height: 5 ft 2 in Weight: 60.9 kg Body Mass Index (BMI): 24.5 Surgical Procedure: Operation Date: 11/13/24 09:05 Proposed Procedure Side Surgeon p Kylah Miles MD Meds Allergies and Home Medications Allergies Allergy/AdvReac Type Severity Reaction Status Date / Time aripiprazole (From Abilify) AdvReac Intermediate HYPER Verified 11/13/24 07:59 codeine AdvReac Unknown PASSES OUT Verified 11/13/24 07:59 Home Medication ?Medication ?Instructions ?Recorded magnesium 250 mg tablet 250 mg PO DAILY 10/25/18 cholecalciferol (vitamin D3) 25 1,000 unit PO DAILY #90 caps 07/22/20 mcg (1,000 unit) capsule omega-3 fatty acids 1,000 mg 1,000 mg PO DAILY 06/30/21 capsule (Fish Oil Concentrate) bupropion HCl 200 mg tablet,12 hr 200 mg PO DAILY 07/21/22 sustained-release riboflavin (vitamin B2) 400 mg 400 mg PO DAILY #90 tabs 07/21/22 tablet clonazepam 0.5 mg tablet 0.5 mg PO DAILY PRN 09/02/22 divalproex 500 mg tablet,delayed 1,000 mg PO QHS 09/02/22 release (Depakote) levothyroxine 88 mcg tablet 88 mcg PO DAILY #90 tabs 05/07/24 nicotine 21 mg/24 hr daily 1 patch transdermal DAILY #42 ea 10/09/24 transdermal patch nicotine 7 mg/24 hr daily 1 patch transdermal DAILY 2 weeks 10/09/24 transdermal patch #14 ea bisacodyl 5 mg tablet,delayed 5 mg PO ONCE Colonoscopy Bowel 10/31/24 release Prep #4 tabs polyethylene glycol 3350 17 238 g PO ONCE #238 grams 10/31/24 gram/dose oral powder quetiapine 25 mg tablet 25 mg PO HS 11/09/24 Current Visit Medications: Current Medications Generic Name Dose Route Start Last Admin Trade Name Freq PRN Reason Stop Dose Admin Ringer's Solution 1,000 mls @ 80 mls/hr 11/13/24 06:00 11/13/24 08:11 IV 11/13/24 23:59 80 mls/hr INFUSION ROSINA Administration IV Miscellaneous Supplies 1 each 11/13/24 06:00 Iv Access IV 11/13/24 23:59 DIRECTED ROSINA Sodium Chloride 0 ml 11/13/24 06:00 Normal Saline Flush 10 Ml Syr IV 11/13/24 23:59 PRN PRN Sodium Chloride 0 ml 11/13/24 06:00 Normal Saline 10 Ml Vial IJ 11/13/24 23:59 DIRECTED PRN Sterile Water 0 ml 11/13/24 06:00 Water,Injection,Sterile 10 Ml Vial IJ 11/13/24 23:59 DIRECTED PRN PFSH Active Problems Active Problems: Problem Status Onset Code Bipolar disorder Chronic F31.9 Alcohol use disorder Chronic F10.90 Hypothyroidism Chronic E03.9 Insomnia Chronic G47.00 Restless leg syndrome Chronic G25.81 Bilateral sensorineural hearing loss Chronic H90.3 Sigmoid diverticulosis Chronic K57.30 Migraine headache Chronic G43.909 Chronic radicular low back pain Chronic M54.16, G89.29 Cubital tunnel syndrome on left Chronic G56.22 Cigarette smoker Chronic F17.210 Medical History Medical History Tubulovillous adenoma of colon (~2010) Possibly on 2010 colonoscopy GERD (gastroesophageal reflux disease) Prediabetes Herpes zoster History of alcoholism had 9 years sobriety; restarted 2018 Surgical History Surgical History S/P BSO (bilateral salpingo-oophorectomy) (2017) S/P vaginal hysterectomy (2017) Had hx of CIN2 and HPV S/P LEEP of cervix History of orthopedic surgery Status post foot joint surgery S/P First MTP joint fusion DOS: 11/10/2007 Dr. Flores Tobacco Smoking/Tobacco Use Status: Current every day Tobacco Type: cigarettes Passive smoking exposure: Yes Second hand exposure: Yes Counseling given: provider counseling Alcohol Alcohol Intake: current Alcohol intake frequency: 3 or more drinks per day Alcohol type: beer Details: 6 or more drinks monthly or less Substance Use Substance use: Daily Substance use type: marijuana Counseling provided: none Vital Signs and Lab Results Vital Signs Most Recent Vital Signs in EMR: Most Recent Vital Signs Temp Pulse Resp BP Pulse Ox 36.1 C L 92 H 18 135/85 98 11/13/24 07:54 11/13/24 07:54 11/13/24 07:54 11/13/24 07:54 11/13/24 07:54 Lab Results Blood Type / Crossmatch: No Data to Display Complete Blood Count: No Data to Display Complete Metabolic Panel: No Data to Display Liver Function Panel: No Data to Display Coagulation Panel: No Data to Display Cardiac Panel: No Data to Display Arterial Blood Gas: No Data to Display Venous Blood Gas: No Data to Display Pancreas Panel: No Data to Display Thyroid Panel: No Data to Display Infectious Disease: No Data to Display Blood Cultures: No Data to Display Toxicology Panel: No Data to Display Anesthesia Assessment and Plan Anesthesia History Personal History: No History of Anesthesia Complications Family History: No Family History of Anesthesia Complications Exercise Tolerance Exercise Tolerance: Metabolic Equivalents>4 Pertinent Negatives Pertinent Negatives: No Symptoms of GERD Cardiac & Pulmonary Exam Cardiac Exam: Normal S1/S2 Heart Sounds Pulmonary Exam: Clear Bilateral Breath Sounds Implantable Cardiac Device Does patient have a Pacemaker or an ICD?: No Airway Exam Known Difficult Airway: No Mallampati Class: 2 Mouth Opening: Normal (> 3cm) Thyromental Distance: Greater than 3 cm Neck Range of Motion: Full ROM Neck Circumference: Normal Teeth Condition: Normal Dentition ASA Classification ASA Score: ASA 2 Emergency Case?: No NPO Status NPO Status: NPO Clears >2 hours, Solids >8 hours Anesthesia Plan Resuscitation Status: Full Code Anesthesia Technique: General Anesthesia Airway Planned: Natural Airway Monitors Used: Standard Monitors
--- NOTE | 2024-11-13 08:52 | W.COLOREPORT ---
Date of service: 11/13/24 Time of Service: 08:52 Colonoscopy Report Procedure Description: PROCEDURES PERFORMED: 1. Colonoscopy PREOPERATIVE DIAGNOSIS: Surveillance colonoscopy POSTOPERATIVE DIAGNOSIS: Grade 1 internal hemorrhoids SURGEON: Princess Miles MD INDICATION FOR PROCEDURE: the patient is a 64-year-old woman due for surveillance colonoscopy. She has no symptoms. She has a remote personal history of prior adenomatous polyps. FINDINGS: Normal terminal ileum. No polyps. No inflammation anywhere. I did NOT appreciate any obvious diverticular disease. Grade 1 internal hemorrhoids present. SURVEILLANCE interval/FOLLOW-UP: 10 years SPECIMENS: None EBL: Minimal COMPLICATIONS: None QUALITY of prep: Excellent Procedure in detail: The patient gave written consent and was in agreement with the indications, the potential risks as well as the benefits of the procedure. They were taken to the endoscopy suite and laid in the left lateral decubitus position. A timeout was performed and anesthesia was administered which was tolerated well. I started the procedure. Digital rectal and visual examination was performed and grossly within normal limits. A well-lubricated flexible colonoscope was then introduced and passed without any notable difficulty all the way to the cecum identified by the ileocecal valve and the appendiceal orifice. The terminal ileum was briefly intubated and looked normal. The scope was then slowly withdrawn with the above-noted findings. The patient tolerated the procedure well and was taken to the PACU in hemodynamically stable condition.
--- NOTE | 2024-11-13 08:53 | W.PM.DSUDISC ---
Date of service: 11/13/24 Discharge Plan Disposition Patient Disposition: Home Condition: Good Discharge Details Attending Provider: Champ Miles Primary Care Provider: Shannon Hernandez Home Meds and New Rx's Prescriptions: No Action magnesium 250 mg tablet 250 mg PO DAILY omega-3 fatty acids [Fish Oil Concentrate] 1,000 mg capsule 1,000 mg PO DAILY clonazepam 0.5 mg tablet 0.5 mg PO DAILY PRN bisacodyl 5 mg tablet,delayed release (DR/EC) 5 mg PO ONCE Qty: 4 0RF Rx Instructions: Per Colonoscopy bowel prep instructions polyethylene glycol 3350 17 gram/dose powder 238 g PO ONCE Qty: 238 0RF Rx Instructions: For Colonoscopy bowel prep, as directed by office bupropion HCl 200 mg tablet sustained-release 12 hr 200 mg PO DAILY riboflavin (vitamin B2) 400 mg tablet 400 mg PO DAILY Qty: 90 3RF cholecalciferol (vitamin D3) 25 mcg (1,000 unit) capsule 1,000 unit PO DAILY Qty: 90 3RF divalproex [Depakote] 500 mg tablet,delayed release (DR/EC) 1,000 mg PO QHS levothyroxine 88 mcg tablet 88 mcg PO DAILY Qty: 90 3RF nicotine 21 mg/24 hr patch 24 hour 1 patch transdermal DAILY Qty: 42 0RF Rx Instructions: Apply 1 patch daily for 6 weeks nicotine 7 mg/24 hr patch 24 hour 1 patch transdermal DAILY 14 Days Qty: 14 6RF Rx Instructions: Apply 1 patch daily for 2 wks after 14mg patch quetiapine 25 mg tablet 25 mg PO HS Discharge Instructions Additional Instructions: FINDINGS: Your colon and rectum appear very healthy. You have some mild hemorrhoid disease which is benign and there is nothing to worry about. I did not appreciate any significant diverticular disease. No polyps were found. Repeat another colonoscopy in 10 years. Stand Alone Forms: Anesthesia Discharge Inst., Colonoscopy Post Instructions, Payton Rodriguez ([facility]) Activity:: Activity as Tolerated Diet:: As Tolerated Discharge Orders Discharge Orders: Discharge Order (Routine); Ordered 11/13/24 Ordered By: Champ Miles
[2024-11-13 09:28] VITALS: BP 108/82; PULSE 82; RESP 18; TEMP 36.2; O2SAT 98
[2024-11-13 09:56] VITALS: BP 114/102; PULSE 73; RESP 18; TEMP 36.5; O2SAT 100
--- NOTE | 2024-11-13 10:28 | W.ANESPOSTOP ---
Postoperative Evaluation Date, Time and Location Date Performed: 11/13/24 Time Performed: 10:25 Patient Location: Day Surgery Unit Vital Signs Most Recent Imported Vital Signs: Most Recent Vital Signs Temp Pulse Resp BP Pulse Ox 36.5 C 73 18 114/102 H 100 11/13/24 09:56 11/13/24 09:56 11/13/24 09:56 11/13/24 09:56 11/13/24 09:56 Pain Score Most Recent Pain Score: Most Recent Pain Score Pain Level 0 11/13/24 09:56 Assessment Mental Status: Awake (Alert & Oriented to Patient Baseline) Airway and Respiratory Function: Patent airway with normal (patient baseline) respiratory exam Cardiovascular Function: Hemodynamically Stable Hydration Status: Adequately Hydrated Nausea & Vomiting: No Nausea or Vomiting Pain: Pt. Denies Any Pain Peripheral Nerve Block: Patient did not receive a nerve block
== END 2024-11-13 10:25 | disposition home or self-care (01) ==
LOC: SUR 07:38
PROVIDERS: PCP Nurse Practitioner Family; Visit Provider Student in an Organized Health Care Education/Training Program
PROC: 0DJD8ZZ Inspection of Lower Intestinal Tract, Via Natural or Artificial Opening Endoscopic (ICD-10-PCS; CPT 45378; principal; 2024-11-13 09:00)
DX: Z12.11 Encounter for screening for malignant neoplasm of colon (principal); K64.0 First degree hemorrhoids; Z86.0101 Personal history of adenomatous and serrated colon polyps
CPT/HCPCS: G0105; J2003; J2704

== ENCOUNTER 2024-11-22 10:22 | Outpatient (REF) | payer MEDICARE, MEDICAID, SELFPAY ==
[2024-11-23 11:06] LABS: Chlamydia Result Negative (Negative); GC Result Negative (Negative)
== END 2024-11-22 10:23 | disposition home or self-care (01) ==
LOC: LBN 10:22
PROVIDERS: PCP Nurse Practitioner Family; Visit Provider Nurse Practitioner Family
DX: Z11.59 Encounter for screening for other viral diseases; Z11.3 Encounter for screening for infections with a predominantly sexual mode of transmission
CPT/HCPCS: 87491; 87591

== ENCOUNTER 2024-11-30 00:59 | Outpatient (CLI) | payer MEDICARE, MEDICAID, SELFPAY ==
[2024-12-03 08:19] LABS: Hepatitis C Ab w Rflx HCV PCR Negative (Negative)
[2024-12-03 08:22] LABS: HIV-1/2 Ag & Ab Screen Negative (Negative)
[2024-12-03 09:27] LABS: Hepatitis B Surface Ag Negative (Negative)
[2024-12-03 11:51] LABS: Syphilis Serology (RPR) Negative (Negative)
== END 2024-11-30 01:00 | disposition home or self-care (01) ==
LOC: LBO 00:59
PROVIDERS: PCP Nurse Practitioner Family; Visit Provider Nurse Practitioner Family
DX: Z11.3 Encounter for screening for infections with a predominantly sexual mode of transmission (principal); Z11.59 Encounter for screening for other viral diseases; Z11.4 Encounter for screening for human immunodeficiency virus [HIV]
CPT/HCPCS: 36415; 86803; 87340; 87389; 86592

== ENCOUNTER 2025-04-23 03:28 | Outpatient (CLI) | payer MEDICARE, MEDICAID, SELFPAY ==
--- NOTE | 2025-04-23 06:30 | DI.US_ITS ---
Exam(s) US PELVIS TRANSVAGINAL EXAM: US PELVIS TRANSVAGINAL CLINICAL HISTORY: LLQ pain,r10.32 TECHNIQUE: Ultrasound of the pelvis was performed both transabdominal and transvaginal. COMPARISON: US US BREAST RT LIMITED from 09/19/2023 CR XR HIP LT COMPLETE AP PELVIS from 04/23/2025 FINDINGS: UTERUS: Uterus is surgically absent. OVARIES: Both ovaries are surgically absent. CUL-DE-SAC: No free fluid evident. IMPRESSION: 1. Uterus and ovaries are surgically absent. 2. No abnormal focal findings in the pelvis 3. No free fluid evident. DATA REPOSITORY:
--- NOTE | 2025-04-23 14:10 | DI.RAD_ITS ---
Exam(s) XR HIP LT COMPLETE AP PELVIS EXAM: XR HIP LT COMPLETE AP PELVIS CLINICAL HISTORY: Left hip pain,m25.552. TECHNIQUE: 2D digital imaging was performed of the left hip. Three views were obtained. AP pelvis and lateral left hip views were obtained. FINDINGS: BONES: No acute fracture is present. No bony destructive lesion is seen. JOINTS: No dislocation present. SOFT TISSUE: Normal. IMPRESSION: Unremarkable radiographs of the left hip. Unremarkable radiographs of the pelvis DATA REPOSITORY: RADIATION DOSE DELIVERED:
== END 2025-04-23 03:48 ==
LOC: DI 03:28
PROVIDERS: PCP Nurse Practitioner Family; Visit Provider Nurse Practitioner Family
DX: R10.32 Left lower quadrant pain (principal); M25.552 Pain in left hip
CPT/HCPCS: 73502; 76830; 76856

== ENCOUNTER 2025-05-31 14:12 | Outpatient (CLI) | payer MEDICARE, MEDICAID, SELFPAY | END 2025-05-31 14:13 | disposition home or self-care (01) | LOC: LBO 14:13 | PROVIDERS: PCP Nurse Practitioner Family; Visit Provider Registered Nurse | DX: F31.89 Other bipolar disorder (principal); F41.1 Generalized anxiety disorder; F10.90 Alcohol use, unspecified, uncomplicated | CPT/HCPCS: 36415; 80164 ==